=== PATIENT | male | born 1975 | race Caucasian/White ===

== ENCOUNTER 2020-04-02 16:39 | Observation (INO) ==
[2020-04-02] MEDS ORDERED: 0.9 % Sodium Chloride 1,000 ML IVC ONE (17:49)
[2020-04-02] MEDS ORDERED: Isovue-370 500 ML BOTTLE IVP ONE (17:51)
[2020-04-02] MEDS ORDERED: Morphine Sulfate 2 MG/ML SYRINGE IVP ONE ×3 (17:52→21:10)
[2020-04-02] MEDS ORDERED: Ondansetron 4 MG/2 ML VIAL IVP ONE (17:53)
[2020-04-02 18:23] LABS: Eosinophils % 0.4 %
[2020-04-02 18:25] LABS: Basophils % 0.2 %; Hematocrit 36.8 % (37.5-50.1); Hemoglobin 12.5 g/dL (12.9-16.9); Immature Granulocytes % 0.4 % (0-4); Immature Platelets 5.4 % (1.1-6.1); Lymphocytes # 1.4 K/mcL (0.6-4.6); Lymphocytes % 28.1 %; Mean Corpuscular Hemoglobin 28.2 pg (28.0-33.3); Mean Corpuscular Volume 82.9 fL (83.0-100.0); Mean Platelet Volume 10.5 fL (9.4-12.4); Monocytes # 0.7 K/mcL (0.0-1.3); Platelet Count 128 K/mcL (140-400); Red Blood Count 4.44 M/mcL (4.19-5.50); Red Cell Distribution Width 12.2 % (11.5-14.5); Segmented Neutrophils % 57.9 %; White Blood Count 5.1 K/mcL (4.3-11.1)
[2020-04-02 18:45] LABS: Alanine Aminotransferase 18 Units/L (7-52); Albumin 3.4 g/dL (3.5-5.7); Albumin/Globulin Ratio 1.3 (1.1-2.2); Alkaline Phosphatase 65 Units/L (34-104); Aspartate Amino Transferase 10 Units/L (13-39); BUN/Creatinine Ratio 11 (6-26); Bilirubin,Total 0.5 mg/dL (0.3-1.0); Blood Urea Nitrogen 9 mg/dL (6-20); Calcium 8.6 mg/dL (8.6-10.3); Carbon Dioxide 24 mEq/L (23-29); Chloride 103 mEq/L (98-107); Globulin 2.6 g/dL (2.4-3.5); Glucose 392 mg/dL (70-105); Osmolality,Calculated 299 (280-300); Potassium 3.5 mEq/L (3.5-5.1); Sodium 137 mEq/L (136-145); Troponin I < 0.03 ng/mL (< 0.04); eGFR For African Americans > 60 (> 60); eGFR For Non-African Americans > 60 (> 60)
[2020-04-02 20:06] LABS: Bilirubin,Urine Negative (Negative); Blood,Urine Negative (Negative); Clarity,Urine Clear (Clear); Color,Urine Light-Yellow (Yellow); Glucose,Urine (UA) >=1000 mg/dL (Normal); Ketones,Urine 80 mg/dL (Negative); Leukocyte Esterase,Urine Negative (Negative); Nitrite,Urine Negative (Negative); Protein,Urine 30 mg/dL (Neg-Trace); RBC,Urine 0-3 per hpf (0-3); Specific Gravity,Urine > 1.030 (1.010-1.025); Urobilinogen,Urine Normal (Normal); WBC,Urine 0-3 per hpf (0-3)
[2020-04-02] MEDS ORDERED: cefTRIAXone 1,000 MG in Water for inj. (sterile) 10 ML IVP ONE (20:50)
[2020-04-02] MEDS ORDERED: Azithromycin 500 MG in 0.9 % Sodium Chloride 250 ML IVPB ONE (20:50)
[2020-04-02] MEDS ORDERED: *HR* Promethazine 25 MG/ML VIAL IM ONE (21:11)
[2020-04-02] MEDS ORDERED: Acetaminophen 325 MG TABLET PO PRN (22:36)
[2020-04-02] MEDS ORDERED: Naloxone 0.4 MG/ML INJ IVP PRN (22:36)
[2020-04-02] MEDS ORDERED: *HR* Dextrose 50 % in Water (Vial) 50 ML VIAL IVP PRN (22:38)
[2020-04-02] MEDS ORDERED: Dextrose Gel 15 GM/37.5 ML TUBE PO PRN ×2 (22:38)
[2020-04-02] MEDS ORDERED: D5% in Water 1,000 ML IVC PRN (22:38)
[2020-04-02] MEDS ORDERED: Insulin LISPRO 300 UNITS/3 ML VIAL SUBQ SCH (22:45)
[2020-04-02] MEDS: Insulin LISPRO 300 UNITS/3 ML VIAL SUBQ SCH (23:38)
[2020-04-03] MEDS: Ondansetron ODT 4 MG TAB.RAPDIS SL PRN ×2 (00:03→10:38)
[2020-04-03 02:24] LABS: Basophils % 0.2 %; Red Cell Distribution Width 12.4 % (11.5-14.5)
[2020-04-03 02:25] LABS: White Blood Count 4.1 K/mcL (4.3-11.1)
[2020-04-03 02:26] LABS: Eosinophils % 0.2 %; Hematocrit 34.1 % (37.5-50.1); Hemoglobin 11.5 g/dL (12.9-16.9); Immature Granulocytes % 0.5 % (0-4); Immature Platelets 4.4 % (1.1-6.1); Lymphocytes # 1.8 K/mcL (0.6-4.6); Lymphocytes % 44.4 %; Mean Corpuscular HGB Conc 33.7 g/dL (31.6-35.5); Mean Corpuscular Volume 83.2 fL (83.0-100.0); Mean Platelet Volume 10.3 fL (9.4-12.4); Monocytes # 0.6 K/mcL (0.0-1.3); Monocytes % 13.9 %; Neutrophils # 1.7 K/mcL (1.6-8.9); Platelet Count 126 K/mcL (140-400); Segmented Neutrophils % 40.8 %
[2020-04-03 02:29] LABS: Prothrombin Time 12.1 Seconds (9.4-12.1)
[2020-04-03 02:44] LABS: % Iron Saturation 20 % (20-55); BUN/Creatinine Ratio 10 (6-26); Blood Urea Nitrogen 6 mg/dL (6-20); C-Reactive Protein 53 mg/L (Less than 10); Calcium 7.9 mg/dL (8.6-10.3); Carbon Dioxide 24 mEq/L (23-29); Chloride 106 mEq/L (98-107); Glucose 245 mg/dL (70-105); Iron 41 mcg/dL (65-175); Lactate Dehydrogenase 162 Units/L (140-271); Osmolality,Calculated 294 (280-300); Phosphorous 2.4 mg/dL (2.7-4.5); Sodium 139 mEq/L (136-145); Transferrin 147 mg/dL (203-362); eGFR For African Americans > 60 (> 60); eGFR For Non-African Americans > 60 (> 60)
[2020-04-03 02:57] LABS: Thyroid Stimulating Hormone 3.338 mcIU/mL (0.340-5.600)
[2020-04-03 03:03] LABS: Ferritin 206 ng/mL (20-250)
[2020-04-03 07:52] VITALS: BP 119/72
[2020-04-03] MEDS ORDERED: cefTRIAXone 1,000 MG in 0.9 % Sodium Chloride Mini Bag 100 ML IVPB SCH (09:00)
[2020-04-03] MEDS ORDERED: Azithromycin 500 MG in 0.9 % Sodium Chloride 250 ML IVPB SCH (09:00)
[2020-04-03] MEDS: Insulin LISPRO 300 UNITS/3 ML VIAL SUBQ SCH (09:49)
== END 2020-04-03 11:11 | disposition home or self-care (01) ==
LOC: CDU 16:39 → EMEROOARM 16:39 → SUATTDRO 21:54 → CDU 22:23
PROVIDERS: ADMIT Student in an Organized Health Care Education/Training Program; ATTEND Student in an Organized Health Care Education/Training Program